=== PATIENT | male | born 1995 | race Caucasian/White ===

== ENCOUNTER 2023-08-16 23:06 | Emergency (ER) | payer BC, OTHER ==
[2023-08-17 00:05] LABS: CORONAVIRUS COVID-19 NAA POSITIVE (NEGATIVE); INFLUENZA A NAA NEGATIVE (NEGATIVE); RESPIRATORY SYNCYTIAL VIR NAA NEGATIVE (NEGATIVE)
[2023-08-17] MEDS ORDERED: Sodium Chloride 0.9% 10 ML Syringe FLUSH PRN (00:20)
[2023-08-17] MEDS ORDERED: REMDESIVIR 200 MG in Sodium Chloride 0.9% 250 ML IV ONE (00:20)
== END 2023-08-17 01:32 | disposition home or self-care (01) ==
LOC: JD.ED 23:06
DX: U07.1 COVID-19 (principal); Z88.0 Allergy status to penicillin
CPT/HCPCS: 0241U; 96365; 99283; J0248; J3490; J7050

== ENCOUNTER 2023-12-08 16:24 | Emergency (ER) | payer OTHER, BC ==
[2023-12-08] MEDS: Ketorolac 30 MG/ML SDV IM ONE (17:51)
[2023-12-08] MEDS: Orphenadrine 60 MG/2 ML Inj IM ONE (17:52)
== END 2023-12-08 18:32 | disposition home or self-care (01) ==
LOC: JD.ED 16:24
DX: M51.46 Schmorl's nodes, lumbar region (principal); M47.817 Spondylosis without myelopathy or radiculopathy, lumbosacral region; Z88.0 Allergy status to penicillin
CPT/HCPCS: 72072; 72100; 96372; 99283; J1885; J2360